=== PATIENT | male | born 1980 | race Caucasian/White ===

== ENCOUNTER 2025-03-22 10:22 | Outpatient (CLI) | payer OTHER, BC, SELFPAY ==
[2025-03-22 14:21] LABS: Chloride* 104 mmol/L (96-114)
[2025-03-22 14:22] LABS: Albumin* 4.1 g/dL (3.3-5.0); Potassium* 4.4 mmol/L (3.6-5.1); Sodium* 137 mmol/L (135-149)
[2025-03-22 14:25] LABS: Alanine Aminotransferase* 32 U/L (4-50); Alkaline Phosphatase* 57 U/L (40-150); Anion Gap 11 mEq/L (7-15); Aspartate Amino Transferase* 26 U/L (12-35); Bilirubin Total* 0.7 mg/dL (0.1-1.5); Blood Urea Nitrogen* 15 mg/dL (5-24); Calcium* 9.0 mg/dL (8.4-10.6); Carbon Dioxide* 22 mmol/L (20-32); Creatinine* 0.8 mg/dL (0.5-1.5); Estimated Glomerular Filt Rate 110 ml/min; Glucose* 168 mg/dL (60-115); Total Protein* 7.1 g/dL (6.0-8.3)
[2025-03-22 21:35] LABS: Hematocrit* 43.7 % (37.0-53.0); Hemoglobin* 15.1 gm/dL (13.5-17.5); Immature Granulocytes Abs Auto 0.02 K/uL (0.00-0.30); Immature Granulocytes Pct Auto 0.2 %; Mean Corpuscular HGB Conc 35 gm/dL (32-36); Mean Corpuscular Hemoglobin 31 pg (26-34); Mean Corpuscular Volume 90 fL (80-100); RDW Coefficient of Variation % 12.4 % (11.5-15.5); Red Blood Count* 4.85 m/uL (4.30-5.90); White Blood Count* 10.43 K/uL (4.50-11.00)
[2025-03-22 22:04] LABS: Lymphocytes Absolute Auto 2.00 K/uL (0.90-2.90); Slide Review Reflex No
== END 2025-03-22 10:23 | disposition home or self-care (01) ==
LOC: NPINS 10:22
PROVIDERS: PCP Pediatrics; Visit Provider Pediatrics
DX: Z79.899 Other long term (current) drug therapy (principal)
CPT/HCPCS: 80053; 85025